=== PATIENT | male | born 1975 | race Caucasian/White ===

== ENCOUNTER 2017-07-06 10:29 | Day surgery (SDC) | payer OTHER ==
[~2017-07-06] VITALS: Ht 175.3 cm; Wt 84.6 kg
[2017-07-06] MEDS ORDERED: ZYRTEC5 MG PO (10:48)
[2017-07-06] MEDS ORDERED: TESSALON P100 MG/CAP PO (10:48)
[2017-07-06] MEDS ORDERED: MUCINEX 60600 MG/TA1 PO (10:49)
[2017-07-06] MEDS ORDERED: ULTRAM ER100 MG PO (10:50)
[2017-07-06] MEDS ORDERED: ULTRAM 50MG TAB50 MG PO (10:50)
[2017-07-06] MEDS ORDERED: FLEXERIL5 MG PO (10:50)
[2017-07-06 11:01] VITALS: BP 112/76; PULSE 89; TEMP 97.3
[2017-07-06 12:25] VITALS: BP 112/71; PULSE 84; TEMP 97.9
[2017-07-06 12:40] VITALS: BP 115/78; PULSE 73
[2017-07-06 12:55] VITALS: BP 114/65; PULSE 83
[2017-07-06 13:16] VITALS: BP 117/69; PULSE 78
== END 2017-07-06 13:25 | disposition home or self-care (01) ==
LOC: SDCO 10:29
DX: Z12.11 Encounter for screening for malignant neoplasm of colon (principal); Z83.71 Family history of colonic polyps; Z87.19 Personal history of other diseases of the digestive system; K21.9 Gastro-esophageal reflux disease without esophagitis; K30 Functional dyspepsia
CPT/HCPCS: 43239; G0105; OP; J2250; J3010; J7030